=== PATIENT | male | born 1945 ===

== ENCOUNTER 2020-07-14 18:30 | Emergency (ER) | payer MEDICARE ==
--- NOTE | 2020-07-14 19:05 | EDM.PDOC ---
ED HPI GENERAL MEDICAL PROBLEM - General Chief Complaint: Respiratory Problem Time Seen by Provider: 07/14/20 18:59 Source of Information: Reports: Patient History Limitations: Reports: No Limitations - History of Present Illness INITIAL COMMENTS - FREE TEXT/NARRATIVE: states been having problem eating since having his teeth pulled out in December. states he is hungry for a big cheese burger but his mouth and throat hurts alot when he eats. denies abd pain, denies N/V/D. states constipated and been using miralax and has to dig out with his fingers and stools are brown. denies chest pain/SOB. does have cough and been smoking since kid. still smokes. states finally decided to come to ER since not getting better and been loosing lot of weight. states hadn't seen doctor in 20 years and take no Rx. also pt requesting Rx for home O2. explained to pt he needs to see his clinic for this. - Related Data Allergies Allergy/AdvReac Type Severity Reaction Status Date / Time No Known Allergies Allergy Verified 07/14/20 18:45 Home Meds: Home Meds . [No Known Home Meds] 07/14/20 [History] Past Medical History - Past Health History Medical/Surgical History: Denies Medical/Surgical History Social & Family History - Tobacco Use Smoking Status *Q: Current Every Day Smoker Years of Tobacco use: 45 Packs/Tins Daily: 0.5 - Caffeine Use Caffeine Use: Reports: None - Recreational Drug Use Recreational Drug Use: No ED ROS GENERAL - Review of Systems Review Of Systems: Comprehensive ROS is negative, except as noted in HPI. ED EXAM, GENERAL - Physical Exam Exam: See Below Exam Limited By: No Limitations General Appearance: Alert, No Apparent Distress, Cachetic Ears: Hearing Grossly Normal Throat/Mouth: Normal Voice, No Airway Compromise, Inflammation Head: Atraumatic Neck: Non-Tender, Full Range of Motion Respiratory/Chest: No Accessory Muscle Use, Rhonchi. No: Decreased Breath Sounds Cardiovascular: Regular Rate, Rhythm GI/Abdominal: Soft, Non-Tender (Male) Exam: Deferred Rectal (Males) Exam: Deferred Neurological: Alert, Oriented, Normal Cognition, Normal Gait, No Motor/Sensory Deficits Psychiatric: Normal Affect, Normal Mood Skin Exam: Warm, Dry, Normal Color Lymphatic: No Adenopathy Course - Vital Signs Last Recorded V/S: Last Vital Signs Temp 36.7 C 07/14/20 18:44 Pulse 82 07/14/20 18:44 Resp 16 07/14/20 18:44 BP 131/71 07/14/20 18:44 Pulse Ox 100 07/14/20 18:44 - Orders/Labs/Meds Orders: Active Orders 24 hr Category Date Time Status Chest w Cont [CT] Urgent Exams 07/14/20 22:43 Ordered CULTURE STREP A CONFIRMATION [] Stat Lab 07/14/20 18:55 Results STREP SCRN A RAPID W CULT CONF [] Stat Lab 07/14/20 18:55 Results Labs: Laboratory Tests 07/14/20 07/14/20 07/14/20 Range/Units 19:10 19:10 19:10 WBC 6.2 (5.0-10.0) 10^3/uL RBC 2.77 L (4.6-6.2) 10^6/uL Hgb 6.3 L* (14.0-18.0) g/dL Hct 20.9 L* (40.0-54.0) % MCV 75.5 L (80-100) fL MCH 22.7 L (27.0-34.0) pg MCHC 30.1 L (33.0-35.0) g/dL Plt Count 324 (150-450) 10^3/uL Neut % (Auto) 77.4 H (42.2-75.2) % Lymph % (Auto) 11.6 L (20.5-50.1) % [place] % (Auto) 8.7 H (2-8) % Eos % (Auto) 1.8 (1.0-3.0) % Baso % (Auto) 0.5 (0.0-1.0) % D-Dimer, Quantitative 3240 H (0-400) ng/mL Sodium 139 (136-145) mmol/L Potassium 4.5 (3.5-5.1) mmol/L Chloride 101 (98-107) mmol/L Carbon Dioxide 30 (21-32) mmol/L Anion Gap 12.5 (7-13) mEq/L BUN 41 H (7-18) mg/dL Creatinine 1.24 (0.70-1.30) mg/dL Est Cr Clr Drug Dosing 39.52 mL/min Estimated GFR (MDRD) 57 BUN/Creatinine Ratio 33.1 (No establ ref range) Glucose 130 H (74-99) mg/dL Calcium 8.8 (8.5-10.1) mg/dL Total Bilirubin 0.2 (0.2-1.0) mg/dL AST 16 (15-37) U/L ALT 12 L (16-63) U/L Alkaline Phosphatase 80 (46-116) U/L Total Protein 6.6 (6.4-8.2) g/dL Albumin 2.9 L (3.4-5.0) g/dL Globulin 3.7 Albumin/Globulin Ratio 0.78 Amylase 40 (25-115) U/L Lipase 69 L (73-393) U/L SARS CoV-2 RNA Rapid EVELIA (NEGATIVE) 07/14/20 Range/Units 22:15 WBC (5.0-10.0) 10^3/uL RBC (4.6-6.2) 10^6/uL Hgb (14.0-18.0) g/dL Hct (40.0-54.0) % MCV (80-100) fL MCH (27.0-34.0) pg MCHC (33.0-35.0) g/dL Plt Count (150-450) 10^3/uL Neut % (Auto) (42.2-75.2) % Lymph % (Auto) (20.5-50.1) % [place] % (Auto) (2-8) % Eos % (Auto) (1.0-3.0) % Baso % (Auto) (0.0-1.0) % D-Dimer, Quantitative (0-400) ng/mL Sodium (136-145) mmol/L Potassium (3.5-5.1) mmol/L Chloride (98-107) mmol/L Carbon Dioxide (21-32) mmol/L Anion Gap (7-13) mEq/L BUN (7-18) mg/dL Creatinine (0.70-1.30) mg/dL Est Cr Clr Drug Dosing mL/min Estimated GFR (MDRD) BUN/Creatinine Ratio (No establ ref range) Glucose (74-99) mg/dL Calcium (8.5-10.1) mg/dL Total Bilirubin (0.2-1.0) mg/dL AST (15-37) U/L ALT (16-63) U/L Alkaline Phosphatase (46-116) U/L Total Protein (6.4-8.2) g/dL Albumin (3.4-5.0) g/dL Globulin Albumin/Globulin Ratio Amylase (25-115) U/L Lipase (73-393) U/L SARS CoV-2 RNA Rapid EVELIA Negative (NEGATIVE) - Re-Assessments/Exams Free Text/Narrative Re-Assessment/Exam: 07/14/20 23:[address] Vann @ [facility] who kindly accepted pt. Departure - Departure Time of Disposition: 23:45 Disposition: DC/Tfer to [facility] 02 Condition: Fair Clinical Impression: Hypoxia, Elevated d-dimer Anemia Qualifiers: Anemia type: unspecified type Qualified Code(s): D64.9 - Anemia, unspecified Ascites Qualifiers: Ascites type: other type Qualified Code(s): R18.8 - Other ascites - Discharge Information Forms: [facility] Seps[facility] Event Note (ED) - Evaluation Sepsis Screening Result: No Definite Risk - Focused Exam Vital Signs: Vital Signs Temp Pulse Resp BP Pulse Ox 07/14/20 18:44 36.7 C 82 16 131/71 100 - My Orders Last 24 Hours: My Active Orders 07/14/20 18:55 CULTURE STREP A CONFIRMATION [RM] Stat STREP SCRN A RAPID W CULT CONF [RM] Stat 07/14/20 22:43 Chest w Cont [CT] Urgent - Assessment/Plan Last 24 Hours: My Active Orders 07/14/20 18:55 CULTURE STREP A CONFIRMATION [RM] Stat STREP SCRN A RAPID W CULT CONF [RM] Stat 07/14/20 22:43 Chest w Cont [CT] Urgent
[2020-07-14 19:48] LABS: ANION GAP 12.5 mEq/L (7-13)
--- NOTE | 2020-07-14 21:48 | CT ---
PROCEDURE INFORMATION: Exam: CT Abdomen Without Contrast Exam date and time: 07/14/2020 9:07 PM Age: 75 years old Clinical indication: Other: Pain, SOB; Additional info: Low haemoglobin, consti(ation, R/O mass TECHNIQUE: Imaging protocol: Computed tomography images of the abdomen without contrast. Radiation optimization: All CT scans at this facility use at least one of these dose optimization techniques: automated exposure control; mA and/or kV adjustment per patient size (includes targeted exams where dose is matched to clinical indication); or iterative reconstruction. COMPARISON: No relevant prior studies available. FINDINGS: Lungs: The visualized portions of the lung bases are normal. Mediastinal space: There is a small hiatal hernia. Liver: The liver is small and hyperattenuating, nonspecific but possibly reflecting cirrhosis are hemochromatosis. Gallbladder and bile ducts: Normal. No calcified stones. No ductal dilation. Pancreas: The pancreas is normal. Spleen: The spleen is normal. Adrenals: Normal. No mass. Kidneys and ureters: There is mild hydronephrosis. There are no signs of renal calculi. Stomach and bowel: Moderate diverticulosis is present throughout the colon. There is moderate mural thickening of the stomach diffusely.The remainder of the GI tract has normal course, caliber, and morphology. Appendix: A normal appendix is identified. Intraperitoneal space: There is a large amount of free fluid present. Lymph nodes: There is no evidence of lymphadenopathy. Vasculature: There is moderate atherosclerotic calcifications of the abdominal aorta and its branches, no sign of occlusion or aneurysm. Bladder: The bladder is normal. Reproductive: The prostate demonstrates moderate nonspecific enlargement. The seminal vesicles are normal. Bones/joints: The lumbar spine demonstrates mild degenerative changes at multiple levels. The pelvis and sacrum are morphologically normal and anatomically aligned. Soft tissues: Unremarkable. IMPRESSION: 1. Marked ascites. 2. Mild hydronephrosis, no sign of obstructing mass or calculus, suspect bladder outlet obstruction. 3. Small hyperattenuating liver, cirrhosis versus hemochromatosis.
--- NOTE | 2020-07-14 23:17 | CR ---
PROCEDURE INFORMATION: Exam: XR Chest, 1 View Exam date and time: 07/14/2020 11:04 PM Age: 75 years old Clinical indication: Other: Low o2 sats; Additional info: SOB TECHNIQUE: Imaging protocol: XR of the chest Views: 1 view. COMPARISON: No relevant prior studies available. FINDINGS: Lungs: Unremarkable. No consolidation. Pleural space: Unremarkable. No pleural effusion. No pneumothorax. Heart/Mediastinum: Unremarkable. No cardiomegaly. Bones/joints: Unremarkable. IMPRESSION: No acute findings.
== END 2020-07-15 01:01 ==
LOC: DL.ED 18:30
DX: D64.9 Anemia, unspecified (principal); R18.8 Other ascites; R09.02 Hypoxemia; R79.1 Abnormal coagulation profile; F17.210 Nicotine dependence, cigarettes, uncomplicated; Z20.828 Contact with and (suspected) exposure to other viral communicable diseases
CPT/HCPCS: 36415; 71045; 74150; 74176; 80053; 82150; 83690; 85025; 85379; 87081; 87430; 99284; 99285-25; U0002